=== PATIENT | female | born 1940 | race Caucasian/White ===

== ENCOUNTER → 2019-01-11 | Outpatient (CLI) | payer MEDICARE | LOC: COL.RAD 14:45 | DX: M75.121 Complete rotator cuff tear or rupture of right shoulder, not specified as traumatic (principal); M19.011 Primary osteoarthritis, right shoulder ==

== ENCOUNTER 2019-02-12 09:45 | Outpatient (RCR) | payer MEDICARE | END 2019-02-13 | LOC: WSPT | DX: R29.6 Repeated falls (principal); R53.1 Weakness; M25.511 Pain in right shoulder ==

== ENCOUNTER 2019-02-15 08:52 | Day surgery (SDC) | payer MEDICARE ==
[~2019-02-15] VITALS: Ht 160 cm; Wt 66.8 kg
[2019-02-15 09:07] VITALS: BP 137/96; PULSE 82; TEMP 97.5
[2019-02-15] MEDS ORDERED: EFFEXOR 3737.5 MG/TA PO (09:46)
[2019-02-15] MEDS ORDERED: SANCTURA XR60 MG PO (09:47)
[2019-02-15] MEDS ORDERED: LAC-HYDRIN12% TOP (09:53)
[2019-02-15] MEDS ORDERED: TOPROL XL 50MG50 MG PO (09:53)
[2019-02-15] MEDS ORDERED: INTEGRA PLUS1 CAP PO (09:54)
[2019-02-15] MEDS ORDERED: JANUVIA 100MG100 MG PO (09:54)
[2019-02-15] MEDS ORDERED: DIPROLENE CR15GM TP (09:55)
[2019-02-15] MEDS ORDERED: LIPITOR 10MG10 MG PO (09:55)
[2019-02-15] MEDS ORDERED: GLUCOTROL XL5 MG/TAB PO (09:56)
[2019-02-15] MEDS ORDERED: MASON NATURAL2000 IU PO (09:57)
[2019-02-15] MEDS ORDERED: COLESTID 1GM1 G PO (09:57)
[2019-02-15] MEDS ORDERED: CALCIUM 600600 MG PO (09:58)
[2019-02-15 10:40] VITALS: BP 138/70; PULSE 68; TEMP 97.8
--- NOTE | 2019-02-15 10:40 | NUR ---
Patient arrives back to [facility] alert, denies pain or nausea. Patient ambulates from cart to chair with stand by assist and without any complications. Patient montior applied, vitals stable. Patient's grand daughter at the bedside.
--- NOTE | 2019-02-15 10:45 | NUR ---
Patient given soda and muffin.
[2019-02-15 10:55] VITALS: BP 124/58; PULSE 70
--- NOTE | 2019-02-15 11:00 | NUR ---
Dismissal instructions gone over with patient and patient's grand daughter. Both verbalize understanding and all questions answered.
[2019-02-15 11:10] VITALS: BP 125/64; PULSE 66
--- NOTE | 2019-02-15 11:30 | NUR ---
Patient dismissed to private vehicle via wheelchair to patient enterance with grand daughter. Patient and grand daughter leave thanking staff for services.
[2019-02-15 13:28] VITALS: BP 130/61; PULSE 100
== END 2019-02-15 11:30 | disposition home or self-care (01) ==
LOC: SDCO 08:52
DX: Z12.11 Encounter for screening for malignant neoplasm of colon (principal); K57.30 Diverticulosis of large intestine without perforation or abscess without bleeding; E78.00 Pure hypercholesterolemia, unspecified; I10 Essential (primary) hypertension; E11.9 Type 2 diabetes mellitus without complications; Z86.010 Personal history of colon polyps; Z90.49 Acquired absence of other specified parts of digestive tract; Z90.710 Acquired absence of both cervix and uterus
CPT/HCPCS: J7030

== ENCOUNTER → 2019-03-15 | Outpatient (CLI) | payer MEDICARE ==
[~2019-03-15] MED LIST: CALCIUM 600600 MG PO; COLESTID 1GM1 G PO; DIPROLENE CR15GM TP; EFFEXOR 3737.5 MG/TA PO; GLUCOTROL XL5 MG/TAB PO; INTEGRA PLUS1 CAP PO; JANUVIA 100MG100 MG PO; LAC-HYDRIN12% TOP; LIPITOR 10MG10 MG PO; MASON NATURAL2000 IU PO; SANCTURA XR60 MG PO; TOPROL XL 50MG50 MG PO
== END ==
LOC: MC.RAD 01-10 15:45
DX: Z12.31 Encounter for screening mammogram for malignant neoplasm of breast (principal)

== ENCOUNTER 2019-04-19 16:00 | Outpatient (RCR) | payer MEDICARE | END 2019-05-20 | disposition home or self-care (01) | LOC: WSPT | DX: M25.511 Pain in right shoulder (principal); R29.6 Repeated falls; R53.1 Weakness ==